=== PATIENT | female | born 1980 | race African-American/Black ===

== ENCOUNTER 2017-04-01 19:28 | Emergency (ER) | payer OTHER ==
[~2017-04-01 19:28] MED LIST: NAPROSYN500 MG PO
[2017-04-01] MEDS ORDERED: NO MEDICATIONS (19:48)
[2017-04-01 21:55] LABS: URINE SOURCE CLEAN CATCH
[2017-04-01 21:59] LABS: URINE APPEARANCE CLEAR; URINE BLOOD 2+ (NEG); URINE COLOR YELLOW; URINE GLUCOSE NEG (NORM); URINE KETONE 1+ (NEG); URINE LEUKOCYTE ESTERASE NEG (NEG); URINE NITRATE NEG (NEG); URINE PROTEIN TRACE (NEG); URINE SPECIFIC GRAVITY 1.025 (1.003-1.035)
[2017-04-01 22:01] LABS: MICRO INDICATED? YES; URINE BILIRUBIN POS (NEG)
[2017-04-01 22:02] LABS: CULTURE INDICATED? NO; URINE BACTERIA NEG (NEG); URINE MUCUS PRESENT; URINE SQUAMOUS EPITHELIAL CELL OCCAS /[HPF]; URINE TRANSITIONAL EPI CELLS FEW /[HPF]
== END 2017-04-01 22:54 | disposition home or self-care (01) ==
LOC: SED 19:28
PROVIDERS: Emergency Medicine
DX: K29.00 Acute gastritis without bleeding (principal); F17.200 Nicotine dependence, unspecified, uncomplicated; R82.99 Other abnormal findings in urine; Z98.890 Other specified postprocedural states; Z88.8 Allergy status to other drugs, medicaments and biological substances
CPT/HCPCS: 81003; 84703; 99284